=== PATIENT | female | born 1965 | race Caucasian/White ===

== ENCOUNTER 2016-10-20 19:44 | Emergency (ER) | payer OTHER ==
--- NOTE | 2016-10-20 20:29 | DIAGNOSTIC IMAGING REPORT ---
PROCEDURE: XR FOOT 3 VIEWS - LEFT INDICATION: TRAUMA/INJURY, initial encounter TECHNIQUE: Three views. COMPARISON: None. FINDINGS: Osseous structures, joint spaces and soft tissues are normal. IMPRESSION: 1. Normal left foot.
--- NOTE | 2016-10-20 20:43 | ED ORDER SUMMARY ---
..... Patient: JI SPARKS OrderSheet Located [facility] VisitID: [id number] [address] [place] [address] 51y, F Registration Date/Time: 10/20/2016 ORDER SHEET Weight: 72.5 kg (stated) Allergies: Ceclor GENERAL ORDERS: Foot 3V Left Urgent (20:14 10/20/2016 EKoroleva P.A.-C) (20:20 RFay) MEDICATION ORDERS: Hydrocodone-APAP PO 5/325 mg (NOW, HIGH ALERT MEDICATION) (20:14 10/20/2016 EKoroleva P.A.-C) (Ack 20:21 SRoberts R.N.) (20:24 SRoberts R.N.) Bactrim DS PO (Tablet 800-160 mg) 1 tab (NOW) (20:43 10/20/2016 EKoroleva P.A.-C) (21:01 TLewis R.N.) IV FLUIDS: ORDER SHEET NOTES: [Electronically signed by Juan Chavis R.N. (21:10/20/2016)] [Electronically signed by Christine SchultzANikky-C (21:09 10/20/2016)] [Electronically locked/signed by Juan Chavis R.N. (21:10/20/2016)]
--- NOTE | 2016-10-20 20:43 | ED CLINICAL REPORT ---
Clinical Report - Physicians/Mid Levels [facility] [address] [place] [address] 10/20/2016 19:47 Patient: JI SPARKS Time Seen: 1999Oct 20 2016. Arrived- By private vehicle. HISTORY OF PRESENT ILLNESS Chief Complaint: Injury to the left foot. The injury happened just prior to arrival. The patient sustained a direct blow. Occurred at home. (stepped down from bed, pain since, radiating into foot. Pain at foot on the left aspect. No prior injury. No h/o gout. Reports advil 600 mg at 15:00 with some relief. NO posterior pain. Pain worsens with movement/ ambulation). REVIEW OF SYSTEMS The patient complains of pain on weight bearing. No skin laceration. All systems otherwise negative, except as recorded above. PAST HISTORY The patient has not had a prior injury to the same area. Problems: Laceration. Tetanus Status. Immunizations. Allergies. Asthma. Additional Surgeries: Hysterectomy. Medications: Qvar Inhalation. Albuterol Sulfate HFA Inhalation. Claritin Oral 10 mg, 2x a day. Flonase Nasal. Ibuprofen Oral, as needed. Vitamins/Minerals Oral. Allergies: Ceclor. SOCIAL HISTORY No alcohol use or drug use. ADDITIONAL NOTES The nursing notes have been reviewed. PHYSICAL EXAM Vital Signs: 10/20/2016 20:07 BP: 139/76. HR: 87. RR: 20. O2 saturation: 98%. Temp: 98.3 F. Pain level now: 5/10. Appearance: Alert. Head: Head atraumatic. CVS: Normal heart rate and rhythm. Heart sounds normal. Respiratory: No respiratory distress. Breath sounds normal. No decreased air movement. Skin: Skin intact. Skin warm. Extremities: Left medial ankle. No laceration. Left lateral ankle. No tenderness or swelling. Base of the left 5th metatarsal. No tenderness or laceration. Left dorsal foot: mild tenderness and swelling of the lateral aspect of the dorsal foot. No ligamentous laxity present. No erythema, ecchymosis or deformity. No limitation in movement. Left heel. No tenderness or swelling. Gait: Limping gait. Neuro, Vascular and Tendons: Vascular status intact. Motor intact. LABS, X-RAYS, AND EKG Lt Foot X-ray: (IMPRESSION: 1. Normal left foot. Electronically Final signed by:Jose Oro MD 10/20/2016 8:29:01 PM). PROGRESS AND PROCEDURES Course of Care: Pt with no signs of fx. No signs of achilles injury. Neg valladares test. Pt stable. Ambulatory. Pt with possible early signs of infectious process or contusion from injury this will tx. Pt stable. To f/u outpatient. Has slippers, does not wish for any post op shoe/ crutches. NO calf pain/ tendernss. Pain located to left lateral foot. Patient is stable. Patient/family counseled. Disposition: Discharged. CLINICAL IMPRESSION Sprain of the tarsal ligaments of the left foot. INSTRUCTIONS Apply ice. Elevate affected areas above chest level. You may walk and bear weight as tolerated. Prescription Medications: Hydrocodone/APAP 5mg / 325mg: take 1 orally every 6 hours as needed for pain. Dispense ten (10). Bactrim DS 800 mg / 160 mg: take 1 tablet orally every 12 hours for 10 days. No refill. Substitution is permissible. Follow-up: Follow up with your doctor in three days. Follow-up with: Kaz Guillory DPM, Podiatry, , [facility], [address] [place] [address], [address] [address] Follow up. Call for the next available appointment. (Electronically signed by Christine Schultz P.A.-C 10/20/2016 21:09)
--- NOTE | 2016-10-20 20:43 | ED NURSING NOTES ---
Clinical Report - Nurses [facility] [address] [place] [address] 10/20/2016 19:47 Patient: JI SPARKS TRIAGE Triage time 1999. Acuity: LEVEL 3. Chief Complaint: INJURY TO LEFT FOOT. Alert. No acute distress. VENUS COMA SCORE: Venus Coma Scale: 15- eyes open spontaneously (4); best verbal response- oriented x 4 (5); best motor response- obeys commands (6). --20:11 Joann Choi R.N. 20:07 10/20/16. BP: 139/76. HR: 87. RR: 20. O2 saturation: 98% on room air. Temp: 98.3 F. Pain level now: 12/19. --20:11 Joann Choi R.N. Weight: 72.5 kg stated. Height/Length: 61 inches Per Patient. BMI: 30.2. --20:03 Joann Choi R.N. Medications Albuterol Sulfate HFA Inhalation. Claritin Oral 10 mg, 2x a day. Flonase Nasal. Ibuprofen Oral, as needed. Vitamins/Minerals Oral. --20:04 Joann Choi R.N. Qvar Inhalation. --20:04 Joann Choi R.N. Allergies Ceclor. --20:05 Joann Choi R.N. Medication/allergy information source: the patient. --20:11 Joann Choi R.N. History Arrived by private vehicle. Historian: patient and family. Accompanied by family. Primary physician (burn). This occurred today. Occurred at home. ( Getting out of bed.). She has had new onset of numbness and trouble walking. The patient has been limping when trying to walk. Treatment COPIER FIELD SERVICE TECHNICIAN: None. PAST MEDICAL HX: Tetanus status: unknown. The patient has had a hysterectomy. SOCIAL HX: Smoker- current status unknown. No alcohol use or drug use. FALL RISK ASSESSMENT: Fall risk assessment completed. No fall risk identified. NUTRITIONAL RISK ASSESSMENT: The nutritional risk assessment revealed no deficiencies. FUNCTIONAL ASSESSMENT: Functional assessment: no impairments noted. LEARNING NEEDS ASSESSMENT: The learning needs assessment revealed no barriers. SKIN INTEGRITY ASSESSMENT: Skin integrity risk assessment completed. No skin integrity risk identified. --20:11 Joann Choi R.N. PROBLEMS: Laceration. Asthma. --20:06 Joann Choi R.N. ADDITIONAL SURGERIES: Hysterectomy. --20:06 Joann Choi R.N. Interventions ID band on patient. To room. --20:11 Joann Choi R.N. PHYSICAL ASSESSMENT Ambulatory to room. Patient gowned. GENERAL / NEURO / PSYCH: Appears in pain and anxious. EXTREMITIES: Limited ROM present. Pain with weight bearing. Limping gait. Left foot: tenderness and swelling. SKIN: Skin intact. Skin is warm and dry. --20:11 Joann Choi R.N. NURSING PROGRESS NOTES Extremity elevated. Patient gowned. Two patient identifiers checked. Call light placed in reach. Side rails up x 2. Bed placed in lowest position. Brakes of bed not on. Patient ready for evaluation. --20:12 Joann Choi R.N. 20:24 10/20/2016 Hydrocodone-APAP (Hydrocodone-Acetaminophen) PO 5/325 mg Tablets 1 tab given. Allergies verified, confirmed 5 rights and sedative warning given to the patient and patient's supervisor water softener service. --20:24 Joann Choi R.N. 21:01 10/20/2016 Bactrim DS PO (Tablet 800-160 mg) 1 tab (NOW) was refused by other (Pt left before given). Juan Chavis --21:01 Juan Chavis R.N. DISPOSITION / DISCHARGE Departure time: 20:59. Condition at departure: improved. No learning barriers present. Discharge instructions provided and reviewed with the patient. Reviewed medication(s) side effects, precautions, dosing and course information. Prescription(s) given to the patient. Reviewed referral to a apprentice lineman third step. Patient verbalized understanding. Written instructions provided in Lithuanian. The patient was discharged by the physician senior court office assistant. She was discharged home and accompanied by spouse. She left the Emergency Department ambulatory and via private vehicle. Spouse driving. --20:59 Juan Chavis R.N. 20:58 10/20/16. BP: 129/72. HR: 75. RR: 17. O2 saturation: 99%. Pain level now 3/10. --20:59 Juan Chavis R.N. Locked/Released at 10/20/2016 21:01 by Juan Chavis R.N.
--- NOTE | 2016-10-20 20:43 | ED ORDER SUMMARY ---
..... Patient: JI SPARKS OrderSheet [facility] VisitID: [id number] [address] [place] [address] 51y, F Registration Date/Time: 10/20/2016 ORDER SHEET Weight: 72.5 kg (stated) Allergies: Ceclor GENERAL ORDERS: Foot 3V Left Urgent (20:14 10/20/2016 EKoroleva P.A.-C) (20:20 RFay) MEDICATION ORDERS: Hydrocodone-APAP PO 5/325 mg (NOW, HIGH ALERT MEDICATION) (20:14 10/20/2016 EKoroleva P.A.-C) (Ack 20:21 SRoberts R.N.) (20:24 SRoberts R.N.) Bactrim DS PO (Tablet 800-160 mg) 1 tab (NOW) (20:43 10/20/2016 EKoroleva P.A.-C) (21:01 TLewis R.N.) IV FLUIDS: ORDER SHEET NOTES: [Electronically signed by Juan Chavis R.N. (21:10/20/2016)] [Electronically signed by Christine SchultzANikky-C (21:09 10/20/2016)] [Electronically locked/signed by Juan Chavis R.N. (21:10/20/2016)]
--- NOTE | 2016-10-20 20:43 | ED CLINICAL REPORT ---
Clinical Report - Physicians/Mid Levels [address] [place] [address] 10/20/2016 19:47 Patient: JI SPARKS Time Seen: 1999Oct 20 2016. Arrived- By private vehicle. HISTORY OF PRESENT ILLNESS Chief Complaint: Injury to the left foot. The injury happened just prior to arrival. The patient sustained a direct blow. Occurred at home. (stepped down from bed, pain since, radiating into foot. Pain at foot on the left aspect. No prior injury. No h/o gout. Reports advil 600 mg at 15:00 with some relief. NO posterior pain. Pain worsens with movement/ ambulation). REVIEW OF SYSTEMS The patient complains of pain on weight bearing. No skin laceration. All systems otherwise negative, except as recorded above. PAST HISTORY The patient has not had a prior injury to the same area. Problems: Laceration. Tetanus Status. Immunizations. Allergies. Asthma. Additional Surgeries: Hysterectomy. Medications: Qvar Inhalation. Albuterol Sulfate HFA Inhalation. Claritin Oral 10 mg, 2x a day. Flonase Nasal. Ibuprofen Oral, as needed. Vitamins/Minerals Oral. Allergies: Ceclor. SOCIAL HISTORY No alcohol use or drug use. ADDITIONAL NOTES The nursing notes have been reviewed. PHYSICAL EXAM Vital Signs: 10/20/2016 20:07 BP: 139/76. HR: 87. RR: 20. O2 saturation: 98%. Temp: 98.3 F. Pain level now: 5/10. Appearance: Alert. Head: Head atraumatic. CVS: Normal heart rate and rhythm. Heart sounds normal. Respiratory: No respiratory distress. Breath sounds normal. No decreased air movement. Skin: Skin intact. Skin warm. Extremities: Left medial ankle. No laceration. Left lateral ankle. No tenderness or swelling. Base of the left 5th metatarsal. No tenderness or laceration. Left dorsal foot: mild tenderness and swelling of the lateral aspect of the dorsal foot. No ligamentous laxity present. No erythema, ecchymosis or deformity. No limitation in movement. Left heel. No tenderness or swelling. Gait: Limping gait. Neuro, Vascular and Tendons: Vascular status intact. Motor intact. LABS, X-RAYS, AND EKG Lt Foot X-ray: (IMPRESSION: 1. Normal left foot. Electronically Final signed by:Jose Oro MD 10/20/2016 8:29:01 PM). PROGRESS AND PROCEDURES Course of Care: Pt with no signs of fx. No signs of achilles injury. Neg valladares test. Pt stable. Ambulatory. Pt with possible early signs of infectious process or contusion from injury this will tx. Pt stable. To f/u outpatient. Has slippers, does not wish for any post op shoe/ crutches. NO calf pain/ tendernss. Pain located to left lateral foot. Patient is stable. Patient/family counseled. Disposition: Discharged. CLINICAL IMPRESSION Sprain of the tarsal ligaments of the left foot. INSTRUCTIONS Apply ice. Elevate affected areas above chest level. You may walk and bear weight as tolerated. Prescription Medications: Hydrocodone/APAP 5mg / 325mg: take 1 orally every 6 hours as needed for pain. Dispense ten (10). Bactrim DS 800 mg / 160 mg: take 1 tablet orally every 12 hours for 10 days. No refill. Substitution is permissible. Follow-up: Follow up with your doctor in three days. Follow-up with: Kaz Guillory DPM, Podiatry, , [facility], [address] [place] [address], [address] [address] Follow up. Call for the next available appointment. (Electronically signed by Christine Schultz P.A.-C 10/20/2016 21:09)
--- NOTE | 2016-10-20 20:43 | ED NURSING NOTES ---
Clinical Report - Nurses [facility] [address] [place] [address] 10/20/2016 19:47 Patient: JI SPARKS TRIAGE Triage time 1999. Acuity: LEVEL 3. Chief Complaint: INJURY TO LEFT FOOT. Alert. No acute distress. VENUS COMA SCORE: Venus Coma Scale: 15- eyes open spontaneously (4); best verbal response- oriented x 4 (5); best motor response- obeys commands (6). --20:11 Joann Choi R.N. 20:07 10/20/16. BP: 139/76. HR: 87. RR: 20. O2 saturation: 98% on room air. Temp: 98.3 F. Pain level now: 12/19. --20:11 Joann Choi R.N. Weight: 72.5 kg stated. Height/Length: 61 inches Per Patient. BMI: 30.2. --20:03 Joann Choi R.N. Medications Albuterol Sulfate HFA Inhalation. Claritin Oral 10 mg, 2x a day. Flonase Nasal. Ibuprofen Oral, as needed. Vitamins/Minerals Oral. --20:04 Joann Choi R.N. Qvar Inhalation. --20:04 Joann Choi R.N. Allergies Ceclor. --20:05 Joann Choi R.N. Medication/allergy information source: the patient. --20:11 Joann Choi R.N. History Arrived by private vehicle. Historian: patient and family. Accompanied by family. Primary physician (burn). This occurred today. Occurred at home. ( Getting out of bed.). She has had new onset of numbness and trouble walking. The patient has been limping when trying to walk. Treatment TUBULAR RIVETER: None. PAST MEDICAL HX: Tetanus status: unknown. The patient has had a hysterectomy. SOCIAL HX: Smoker- current status unknown. No alcohol use or drug use. FALL RISK ASSESSMENT: Fall risk assessment completed. No fall risk identified. NUTRITIONAL RISK ASSESSMENT: The nutritional risk assessment revealed no deficiencies. FUNCTIONAL ASSESSMENT: Functional assessment: no impairments noted. LEARNING NEEDS ASSESSMENT: The learning needs assessment revealed no barriers. SKIN INTEGRITY ASSESSMENT: Skin integrity risk assessment completed. No skin integrity risk identified. --20:11 Joann Choi R.N. PROBLEMS: Laceration. Asthma. --20:06 Joann Choi R.N. ADDITIONAL SURGERIES: Hysterectomy. --20:06 Joann Choi R.N. Interventions ID band on patient. To room. --20:11 Joann Choi R.N. PHYSICAL ASSESSMENT Ambulatory to room. Patient gowned. GENERAL / NEURO / PSYCH: Appears in pain and anxious. EXTREMITIES: Limited ROM present. Pain with weight bearing. Limping gait. Left foot: tenderness and swelling. SKIN: Skin intact. Skin is warm and dry. --20:11 Joann Choi R.N. NURSING PROGRESS NOTES Extremity elevated. Patient gowned. Two patient identifiers checked. Call light placed in reach. Side rails up x 2. Bed placed in lowest position. Brakes of bed not on. Patient ready for evaluation. --20:12 Joann Choi R.N. 20:24 10/20/2016 Hydrocodone-APAP (Hydrocodone-Acetaminophen) PO 5/325 mg Tablets 1 tab given. Allergies verified, confirmed 5 rights and sedative warning given to the patient and patient's communication manager. --20:24 Joann Choi R.N. 21:01 10/20/2016 Bactrim DS PO (Tablet 800-160 mg) 1 tab (NOW) was refused by other (Pt left before given). Juan Chavis --21:01 Juan Chavis R.N. DISPOSITION / DISCHARGE Departure time: 20:59. Condition at departure: improved. No learning barriers present. Discharge instructions provided and reviewed with the patient. Reviewed medication(s) side effects, precautions, dosing and course information. Prescription(s) given to the patient. Reviewed referral to a medical transcription radiology. Patient verbalized understanding. Written instructions provided in [place]. The patient was discharged by the physician legal administrative assistant. She was discharged home and accompanied by spouse. She left the Emergency Department ambulatory and via private vehicle. Spouse driving. --20:59 Juan Chavis R.N. 20:58 10/20/16. BP: 129/72. HR: 75. RR: 17. O2 saturation: 99%. Pain level now 3/10. --20:59 Juan Chavis R.N. Locked/Released at 10/20/2016 21:01 by Juan Chavis R.N.
--- NOTE | 2016-10-20 21:09 | ED DISCHARGE INSTRUCTIONS ---
Patient: JI SPARKS General Instructions [facility] VisitID: [id number] [place] [address] 51y, F Registration Date/Time: 10/20/2016 Sprain of the tarsal ligaments of the left foot. INSTRUCTIONS Apply ice. Elevate affected areas above chest level. You may walk and bear weight as tolerated. Prescription Medications: Hydrocodone/APAP 5mg / 325mg: take 1 orally every 6 hours as needed for pain. Dispense ten (10). Bactrim DS 800 mg / 160 mg: take 1 tablet orally every 12 hours for 10 days. No refill. Substitution is permissible. Follow-up: Follow up with your doctor in three days. Follow-up with: Kaz Guillory DPM, Podiatry, , [facility], [address] [place] [address], [address] [address] Follow up. Call for the next available appointment. ADDITIONAL INFORMATION Sprain, Foot A sprain is a stretching or tearing of the ligaments that hold a joint together. There are no broken bones. Sprains take from 36 weeks to heal. A sprain may be treated with a splint, walking cast or special boot. Mild sprains may not require any additional support. Home care The following guidelines will help you care for your injury at home: Keep your leg elevated when sitting or lying down. This is very important during the first 48 hours to reduce swelling. Stay off the injured foot as much as possible until you can walk on it without pain. If needed, you may use crutches during the first week for this purpose. (Crutches can be rented at many pharmacies or surgical/orthopedic supply stores). You may be given a cast shoe to wear to prevent movement in your foot. If not, you can use a sandal or any shoe that does not put pressure on the injured area until the swelling and pain go away. If using a sandal, be careful not to strike your foot against anything, since another injury could make the sprain worse. Apply an ice pack (ice cubes in a plastic bag, wrapped in a towel) over the injured area for 20 minutes every 12 hours the first day. You should continue with ice packs 34 times a day for the next two days. Continue the use of ice packs for relief of pain and swelling as needed. You may use acetaminophen or ibuprofen to control pain, unless another medicine was prescribed. If you have chronic liver or kidney disease or ever had a stomach ulcer or GI bleeding, talk with your doctor before using these medicines. If you were given a splint or cast, keep it dry. Bathe with your splint/cast well out of the water, protected with a large plastic bag, rubber-banded at the top end. If a fiberglass splint or cast gets wet, you can dry it with a hair-dryer. You may return to sports after healing, when you can run without pain. Follow-up care Follow up with your doctor as directed. Any X-rays you had today dont show any broken bones, breaks, or fractures. Sometimes fractures dont show up on the first X-ray. Bruises and sprains can sometimes hurt as much as a fracture. These injuries can take time to heal completely. If your symptoms dont improve or they get worse, talk with your doctor. You may need a repeat X-ray. When to seek medical care Get prompt medical attention if any of the following occur: The plaster cast or splint gets wet or soft The fiberglass cast or splint gets wet and does not dry for 24 hours Pain or swelling increases, or redness appears Toes become cold, blue, numb, or tingly Hydrocodone Bitartrate, Acetaminophen Oral tablet What is this medicine? ACETAMINOPHEN; HYDROCODONE (a set a JAQUAN lane fen; lauren droe KOE done) is a pain reliever. It is used to treat mild to moderate pain. How should I use this medicine? Take this medicine by mouth. Swallow it with a full glass of water. Follow the directions on the prescription label. If the medicine upsets your stomach, take the medicine with food or milk. Do not take more than you are told to take. Talk to your financial services counselor regarding the use of this medicine in children. This medicine is not approved for use in children. What side effects may I notice from receiving this medicine? Side effects that you should report to your doctor or health neurocritical care physician as soon as possible: allergic reactions like skin rash, itching or hives, swelling of the face, lips, or tongue breathing problems confusion feeling faint or lightheaded, falls stomach pain yellowing of the eyes or skin Side effects that usually do not require medical attention (report to your doctor or health neurocritical care physician if they continue or are bothersome): nausea, vomiting stomach upset What may interact with this medicine? alcohol antihistamines isoniazid medicines for depression, anxiety, or psychotic disturbances medicines for sleep muscle relaxants naltrexone narcotic medicines (opiates) for pain phenobarbital ritonavir tramadol What if I miss a dose? If you miss a dose, take it as soon as you can. If it is almost time for your next dose, take only that dose. Do not take double or extra doses. Where should I keep my medicine? Keep out of the reach of children. This medicine can be abused. Keep your medicine in a safe place to protect it from theft. Do not share this medicine with anyone. Selling or giving away this medicine is dangerous and against the law. Store at room temperature between 15 and 30 degrees C (59 and 86 degrees F). Protect from light. Keep container tightly closed. Throw away any unused medicine after the expiration date. Discard unused medicine and used packaging carefully. Pets and children can be harmed if they find used or lost packages. What should I tell my health care provider before I take this medicine? They need to know if you have any of these conditions: brain tumor Crohn's disease, inflammatory bowel disease, or ulcerative colitis drink more than 3 alcohol-containing drinks per day drug abuse or addiction head injury heart or circulation problems kidney disease or problems going to the bathroom liver disease lung disease, asthma, or breathing problems an unusual or allergic reaction to acetaminophen, hydrocodone, other opioid analgesics, other medicines, foods, dyes, or preservatives or trying to get breast-feeding What should I watch for while using this medicine? Tell your doctor or health neurocritical care physician if your pain does not go away, if it gets worse, or if you have new or a different type of pain. You may develop tolerance to the medicine. Tolerance means that you will need a higher dose of the medicine for pain relief. Tolerance is normal and is expected if you take the medicine for a long time. Do not suddenly stop taking your medicine because you may develop a severe reaction. Your body becomes used to the medicine. This does NOT mean you are addicted. Addiction is a behavior related to getting and using a drug for a non-medical reason. If you have pain, you have a medical reason to take pain medicine. Your doctor will tell you how much medicine to take. If your doctor wants you to stop the medicine, the dose will be slowly lowered over time to avoid any side effects. You may get drowsy or dizzy when you first start taking the medicine or change doses. Do not drive, use machinery, or do anything that may be dangerous until you know how the medicine affects you. Stand or sit up slowly. There are different types of narcotic medicines (opiates) for pain. If you take more than one type at the same time, you may have more side effects. Give your health care provider a list of all medicines you use. Your doctor will tell you how much medicine to take. Do not take more medicine than directed. Call emergency for help if you have problems breathing. The medicine will cause constipation. Try to have a bowel movement at least every 2 to 3 days. If you do not have a bowel movement for 3 days, call your doctor or health neurocritical care physician. Too much acetaminophen can be very dangerous. Do not take Tylenol (acetaminophen) or medicines that contain acetaminophen with this medicine. Many non-prescription medicines contain acetaminophen. Always read the labels carefully. Sulfamethoxazole, Trimethoprim Oral tablet What is this medicine? SULFAMETHOXAZOLE; TRIMETHOPRIM or SMX-TMP (suhl fuh meth OK raymundo zohl; trye METH oh prim) is a combination of a sulfonamide antibiotic and a second antibiotic, trimethoprim. It is used to treat or prevent certain kinds of bacterial infections. It will not work for colds, flu, or other viral infections. How should I use this medicine? Take this medicine by mouth with a full glass of water. Follow the directions on the prescription label. Take your medicine at regular intervals. Do not take it more often than directed. Do not skip doses or stop your medicine early. Talk to your financial services counselor regarding the use of this medicine in children. Special care may be needed. This medicine has been used in children as young as 2 months of age. What side effects may I notice from receiving this medicine? Side effects that you should report to your doctor or health neurocritical care physician as soon as possible: allergic reactions like skin rash or hives, swelling of the face, lips, or tongue breathing problems fever or chills, sore throat irregular heartbeat, chest pain joint or muscle pain pain or difficulty passing urine red pinpoint spots on skin redness, blistering, peeling or loosening of the skin, including inside the mouth unusual bleeding or bruising unusually weak or tired yellowing of the eyes or skin Side effects that usually do not require medical attention (report to your doctor or health neurocritical care physician if they continue or are bothersome): diarrhea dizziness headache loss of appetite nausea, vomiting nervousness What may interact with this medicine? Do not take this medicine with any of the following medications: aminobenzoate potassium dofetilide metronidazole This medicine may also interact with the following medications: JESSICA inhibitors like benazepril, enalapril, lisinopril, and ramipril cyclosporine digoxin diuretics indomethacin medicines for diabetes methenamine methotrexate phenytoin potassium supplements pyrimethamine sulfinpyrazone tricyclic antidepressants warfarin What if I miss a dose? If you miss a dose, take it as soon as you can. If it is almost time for your next dose, take only that dose. Do not take double or extra doses. Where should I keep my medicine? Keep out of the reach of children. Store at room temperature between 20 to 25 degrees C (68 to 77 degrees F). Protect from light. Throw away any unused medicine after the expiration date. What should I tell my health care provider before I take this medicine? They need to know if you have any of these conditions: anemia asthma being treated with anticonvulsants if you frequently drink alcohol containing drinks kidney disease liver disease low level of folic acid or [id number] dehydrogenase poor nutrition or malabsorption porphyria severe allergies thyroid disorder an unusual or allergic reaction to sulfamethoxazole, trimethoprim, sulfa drugs, other medicines, foods, dyes, or preservatives or trying to get breast-feeding What should I watch for while using this medicine? Tell your doctor or health neurocritical care physician if your symptoms do not improve. Drink several glasses of water a day to reduce the risk of kidney problems. Do not treat diarrhea with over the counter products. Contact your doctor if you have diarrhea that lasts more than 2 days or if it is severe and watery. This medicine can make you more sensitive to the sun. Keep out of the sun. If you cannot avoid being in the sun, wear protective clothing and use a sunscreen. Do not use sun lamps or tanning beds/booths. You have been given the following additional information: Sprain, Foot Hydrocodone Bitartrate, Acetaminophen Oral tablet Sulfamethoxazole, Trimethoprim Oral tablet You may walk and bear weight as tolerated. (Electronically signed by Christine Schultz P.A.-C 10/20/2016 21:09)
--- NOTE | 2016-10-20 21:09 | ED DISCHARGE INSTRUCTIONS ---
Patient: JI SPARKS General Instructions [facility] VisitID: [id number] [place] [address] 51y, F Registration Date/Time: 10/20/2016 Sprain of the tarsal ligaments of the left foot. INSTRUCTIONS Apply ice. Elevate affected areas above chest level. You may walk and bear weight as tolerated. Prescription Medications: Hydrocodone/APAP 5mg / 325mg: take 1 orally every 6 hours as needed for pain. Dispense ten (10). Bactrim DS 800 mg / 160 mg: take 1 tablet orally every 12 hours for 10 days. No refill. Substitution is permissible. Follow-up: Follow up with your doctor in three days. Follow-up with: Kaz Guillory DPM, Podiatry, , [facility], [address] [place] [address], [address] [address] Follow up. Call for the next available appointment. ADDITIONAL INFORMATION Sprain, Foot A sprain is a stretching or tearing of the ligaments that hold a joint together. There are no broken bones. Sprains take from 36 weeks to heal. A sprain may be treated with a splint, walking cast or special boot. Mild sprains may not require any additional support. Home care The following guidelines will help you care for your injury at home: Keep your leg elevated when sitting or lying down. This is very important during the first 48 hours to reduce swelling. Stay off the injured foot as much as possible until you can walk on it without pain. If needed, you may use crutches during the first week for this purpose. (Crutches can be rented at many pharmacies or surgical/orthopedic supply stores). You may be given a cast shoe to wear to prevent movement in your foot. If not, you can use a sandal or any shoe that does not put pressure on the injured area until the swelling and pain go away. If using a sandal, be careful not to strike your foot against anything, since another injury could make the sprain worse. Apply an ice pack (ice cubes in a plastic bag, wrapped in a towel) over the injured area for 20 minutes every 12 hours the first day. You should continue with ice packs 34 times a day for the next two days. Continue the use of ice packs for relief of pain and swelling as needed. You may use acetaminophen or ibuprofen to control pain, unless another medicine was prescribed. If you have chronic liver or kidney disease or ever had a stomach ulcer or GI bleeding, talk with your doctor before using these medicines. If you were given a splint or cast, keep it dry. Bathe with your splint/cast well out of the water, protected with a large plastic bag, rubber-banded at the top end. If a fiberglass splint or cast gets wet, you can dry it with a hair-dryer. You may return to sports after healing, when you can run without pain. Follow-up care Follow up with your doctor as directed. Any X-rays you had today dont show any broken bones, breaks, or fractures. Sometimes fractures dont show up on the first X-ray. Bruises and sprains can sometimes hurt as much as a fracture. These injuries can take time to heal completely. If your symptoms dont improve or they get worse, talk with your doctor. You may need a repeat X-ray. When to seek medical care Get prompt medical attention if any of the following occur: The plaster cast or splint gets wet or soft The fiberglass cast or splint gets wet and does not dry for 24 hours Pain or swelling increases, or redness appears Toes become cold, blue, numb, or tingly Hydrocodone Bitartrate, Acetaminophen Oral tablet What is this medicine? ACETAMINOPHEN; HYDROCODONE (a set a JAQUAN lane fen; lauren droe KOE done) is a pain reliever. It is used to treat mild to moderate pain. How should I use this medicine? Take this medicine by mouth. Swallow it with a full glass of water. Follow the directions on the prescription label. If the medicine upsets your stomach, take the medicine with food or milk. Do not take more than you are told to take. Talk to your material handler 1st shift regarding the use of this medicine in children. This medicine is not approved for use in children. What side effects may I notice from receiving this medicine? Side effects that you should report to your doctor or health caretaker resort as soon as possible: allergic reactions like skin rash, itching or hives, swelling of the face, lips, or tongue breathing problems confusion feeling faint or lightheaded, falls stomach pain yellowing of the eyes or skin Side effects that usually do not require medical attention (report to your doctor or health caretaker resort if they continue or are bothersome): nausea, vomiting stomach upset What may interact with this medicine? alcohol antihistamines isoniazid medicines for depression, anxiety, or psychotic disturbances medicines for sleep muscle relaxants naltrexone narcotic medicines (opiates) for pain phenobarbital ritonavir tramadol What if I miss a dose? If you miss a dose, take it as soon as you can. If it is almost time for your next dose, take only that dose. Do not take double or extra doses. Where should I keep my medicine? Keep out of the reach of children. This medicine can be abused. Keep your medicine in a safe place to protect it from theft. Do not share this medicine with anyone. Selling or giving away this medicine is dangerous and against the law. Store at room temperature between 15 and 30 degrees C (59 and 86 degrees F). Protect from light. Keep container tightly closed. Throw away any unused medicine after the expiration date. Discard unused medicine and used packaging carefully. Pets and children can be harmed if they find used or lost packages. What should I tell my health care provider before I take this medicine? They need to know if you have any of these conditions: brain tumor Crohn's disease, inflammatory bowel disease, or ulcerative colitis drink more than 3 alcohol-containing drinks per day drug abuse or addiction head injury heart or circulation problems kidney disease or problems going to the bathroom liver disease lung disease, asthma, or breathing problems an unusual or allergic reaction to acetaminophen, hydrocodone, other opioid analgesics, other medicines, foods, dyes, or preservatives or trying to get breast-feeding What should I watch for while using this medicine? Tell your doctor or health caretaker resort if your pain does not go away, if it gets worse, or if you have new or a different type of pain. You may develop tolerance to the medicine. Tolerance means that you will need a higher dose of the medicine for pain relief. Tolerance is normal and is expected if you take the medicine for a long time. Do not suddenly stop taking your medicine because you may develop a severe reaction. Your body becomes used to the medicine. This does NOT mean you are addicted. Addiction is a behavior related to getting and using a drug for a non-medical reason. If you have pain, you have a medical reason to take pain medicine. Your doctor will tell you how much medicine to take. If your doctor wants you to stop the medicine, the dose will be slowly lowered over time to avoid any side effects. You may get drowsy or dizzy when you first start taking the medicine or change doses. Do not drive, use machinery, or do anything that may be dangerous until you know how the medicine affects you. Stand or sit up slowly. There are different types of narcotic medicines (opiates) for pain. If you take more than one type at the same time, you may have more side effects. Give your health care provider a list of all medicines you use. Your doctor will tell you how much medicine to take. Do not take more medicine than directed. Call emergency for help if you have problems breathing. The medicine will cause constipation. Try to have a bowel movement at least every 2 to 3 days. If you do not have a bowel movement for 3 days, call your doctor or health caretaker resort. Too much acetaminophen can be very dangerous. Do not take Tylenol (acetaminophen) or medicines that contain acetaminophen with this medicine. Many non-prescription medicines contain acetaminophen. Always read the labels carefully. Sulfamethoxazole, Trimethoprim Oral tablet What is this medicine? SULFAMETHOXAZOLE; TRIMETHOPRIM or SMX-TMP (suhl fuh meth OK raymundo zohl; trye METH oh prim) is a combination of a sulfonamide antibiotic and a second antibiotic, trimethoprim. It is used to treat or prevent certain kinds of bacterial infections. It will not work for colds, flu, or other viral infections. How should I use this medicine? Take this medicine by mouth with a full glass of water. Follow the directions on the prescription label. Take your medicine at regular intervals. Do not take it more often than directed. Do not skip doses or stop your medicine early. Talk to your material handler 1st shift regarding the use of this medicine in children. Special care may be needed. This medicine has been used in children as young as 2 months of age. What side effects may I notice from receiving this medicine? Side effects that you should report to your doctor or health caretaker resort as soon as possible: allergic reactions like skin rash or hives, swelling of the face, lips, or tongue breathing problems fever or chills, sore throat irregular heartbeat, chest pain joint or muscle pain pain or difficulty passing urine red pinpoint spots on skin redness, blistering, peeling or loosening of the skin, including inside the mouth unusual bleeding or bruising unusually weak or tired yellowing of the eyes or skin Side effects that usually do not require medical attention (report to your doctor or health caretaker resort if they continue or are bothersome): diarrhea dizziness headache loss of appetite nausea, vomiting nervousness What may interact with this medicine? Do not take this medicine with any of the following medications: aminobenzoate potassium dofetilide metronidazole This medicine may also interact with the following medications: JESSICA inhibitors like benazepril, enalapril, lisinopril, and ramipril cyclosporine digoxin diuretics indomethacin medicines for diabetes methenamine methotrexate phenytoin potassium supplements pyrimethamine sulfinpyrazone tricyclic antidepressants warfarin What if I miss a dose? If you miss a dose, take it as soon as you can. If it is almost time for your next dose, take only that dose. Do not take double or extra doses. Where should I keep my medicine? Keep out of the reach of children. Store at room temperature between 20 to 25 degrees C (68 to 77 degrees F). Protect from light. Throw away any unused medicine after the expiration date. What should I tell my health care provider before I take this medicine? They need to know if you have any of these conditions: anemia asthma being treated with anticonvulsants if you frequently drink alcohol containing drinks kidney disease liver disease low level of folic acid or [id number] dehydrogenase poor nutrition or malabsorption porphyria severe allergies thyroid disorder an unusual or allergic reaction to sulfamethoxazole, trimethoprim, sulfa drugs, other medicines, foods, dyes, or preservatives or trying to get breast-feeding What should I watch for while using this medicine? Tell your doctor or health caretaker resort if your symptoms do not improve. Drink several glasses of water a day to reduce the risk of kidney problems. Do not treat diarrhea with over the counter products. Contact your doctor if you have diarrhea that lasts more than 2 days or if it is severe and watery. This medicine can make you more sensitive to the sun. Keep out of the sun. If you cannot avoid being in the sun, wear protective clothing and use a sunscreen. Do not use sun lamps or tanning beds/booths. You have been given the following additional information: Sprain, Foot Hydrocodone Bitartrate, Acetaminophen Oral tablet Sulfamethoxazole, Trimethoprim Oral tablet You may walk and bear weight as tolerated. (Electronically signed by Christine Schultz P.A.-C 10/20/2016 21:09)
--- NOTE | 2016-10-20 21:10 | ED MED RECONCILIATION SUMMARY ---
Patient: JI SPARKS Medication Reconciliation Report [facility] VisitID: [id number] [address] [place] [address] 51y, F Registration Date/Time: 10/20/2016 Weight: 72.5 kg Height/Length: 61 in. BMI: 30.2 ALLERGIES: Ceclor The patient's Home Medications are listed below: THE FOLLOWING MEDICATIONS NEED TO BE RECONCILED: Albuterol Sulfate HFA Inhalation Claritin Oral 10 mg, 2x a day Flonase Nasal Ibuprofen Oral Qvar Inhalation Vitamins/Minerals Oral The source(s) of the original Home Medication information: patient The following Medications were given to the patient in the Emergency Department: Hydrocodone-APAP [PO] PO 1 tab, administered: 10/20/2016 8:24:00 PM The following Medications were prescribed to the patient: Hydrocodone/APAP 5mg / 325mg: take 1 orally every 6 hours as needed for pain. Dispense ten (10). -- Christine Schultz P.AMallory Bactrim DS 800 mg / 160 mg: take 1 tablet orally every 12 hours for 10 days. No refill. Substitution is permissible. -- Christine Schultz, P.ANikky-C
--- NOTE | 2016-10-20 21:10 | ED MAR SUMMARY ---
..... Medication Administration Record [facility] [address] [place] [address] Patient: JI SPARKS Visit ID: [id number] 51y, F Weight: 72.5 kg Height/Length: 61 in BMI: 30.2 ALLERGIES: Ceclor Given 20:24 10/20/2016 Joann Choi R.N. Medication Administered: HYDROCODONE-APAP [PO] (HYDROCODONE-ACETAMINOPHEN), Dose: 1 tab 5/325 mg Tablets PO. Medication Ordered: Hydrocodone-APAP PO 5/325 mg (NOW, HIGH ALERT MEDICATION).
--- NOTE | 2016-10-20 21:10 | ED MED RECONCILIATION SUMMARY ---
Patient: JI SPARKS Medication Reconciliation Report [facility] VisitID: [id number] [address] [place] [address] 51y, F Registration Date/Time: 10/20/2016 Weight: 72.5 kg Height/Length: 61 in. BMI: 30.2 ALLERGIES: Ceclor The patient's Home Medications are listed below: THE FOLLOWING MEDICATIONS NEED TO BE RECONCILED: Albuterol Sulfate HFA Inhalation Claritin Oral 10 mg, 2x a day Flonase Nasal Ibuprofen Oral Qvar Inhalation Vitamins/Minerals Oral The source(s) of the original Home Medication information: patient The following Medications were given to the patient in the Emergency Department: Hydrocodone-APAP [PO] PO 1 tab, administered: 10/20/2016 8:24:00 PM The following Medications were prescribed to the patient: Hydrocodone/APAP 5mg / 325mg: take 1 orally every 6 hours as needed for pain. Dispense ten (10). -- Christine Schultz P.AMallory Bactrim DS 800 mg / 160 mg: take 1 tablet orally every 12 hours for 10 days. No refill. Substitution is permissible. -- Christine Schultz, P.ANikky-C
--- NOTE | 2016-10-20 21:10 | ED MAR SUMMARY ---
..... Medication Administration Record [facility] [address] [place] [address] Patient: JI SPARKS Visit ID: [id number] 51y, F Weight: 72.5 kg Height/Length: 61 in BMI: 30.2 ALLERGIES: Ceclor Given 20:24 10/20/2016 Joann Choi R.N. Medication Administered: HYDROCODONE-APAP [PO] (HYDROCODONE-ACETAMINOPHEN), Dose: 1 tab 5/325 mg Tablets PO. Medication Ordered: Hydrocodone-APAP PO 5/325 mg (NOW, HIGH ALERT MEDICATION).
== END 2016-10-20 20:56 ==
LOC: ED SRH 19:44
DX: S93.612A Sprain of tarsal ligament of left foot, initial encounter (principal); X50.1XXA Overexertion from prolonged static or awkward postures, initial encounter; Y93.9 Activity, unspecified; Y92.003 Bedroom of unspecified non-institutional (private) residence as the place of occurrence of the external cause; Y99.9 Unspecified external cause status